=== PATIENT | female | born 1985 | race Caucasian/White ===

== ENCOUNTER 2022-01-01 08:22 | Day surgery (SDC) | payer BC ==
--- NOTE | 2022-01-01 08:17 | HP ---
DATE OF SURGERY: 01/01/2022 HISTORY OF PRESENT ILLNESS: The patient is a 36-year-old had a bad attack a few weeks, right upper quadrant pain radiating to chest, in between shoulder blades, ingestion, heartburn, nausea, had a sweaty sensation. She had a work up show cholelithiasis. It was felt the patient had acute exacerbation of chronic cholecystitis, symptomatic cholelithiasis. It was felt she needed cholecystectomy. PAST MEDICAL HISTORY: She denies any chronic illnesses. PAST SURGICAL HISTORY: section x2. She had surgery on a vessel in her left arm. MEDICATIONS: Junel control pills, Prilosec. ALLERGIES: NKDA. FAMILY HISTORY: Cancer, hypertension, heart disease, depression. SOCIAL HISTORY: Denies smoking, occasional alcohol use. REVIEW OF SYSTEMS: Fourteen systems reviewed. No chest pain or palpitations. Other systems negative or noncontributory as above and per preadmission questionnaire. PHYSICAL EXAMINATION: GENERAL: No acute distress. HEENT: Sclerae nonicteric. NECK: No JVD. CHEST: Equal excursion, nonlabored breathing. CVS: Regular rate and rhythm. ABDOMEN: Soft. No peritoneal signs. EXTREMITIES: No significant edema. NEURO: Alert, oriented, moving extremities symmetrically. PSYCH: Appropriate mood and affect. IMPRESSION: Acute exacerbation of chronic cholecystitis, symptomatic cholelithiasis. I feel the patient will benefit from cholecystectomy. Risks and benefits explained in detail including but not limited to bleeding or infection, risk of trocar injury or hernia, risk of bowel, bladder or blood vessel injury, risk of bile leak, bile duct injury, retained stone or sludge possibly requiring further procedure either open or ERCP, general risk of anesthesia, deep venous thrombosis, pulmonary embolism, pneumonia, perioperative risk of aches, pains, bloating, constipation and/or loose stools possibly even chronic in nature. She understands and agrees to the planned procedure, will proceed with outpatient laparoscopic cholecystectomy possible open.
[~2022-01-01 08:22] MED LIST: Lactated Ringers 1,000 ML IV ONE; Sensorcaine 0.25% 10 ML ONE
[2022-01-01] MEDS ORDERED: Lactated Ringers 1,000 ML IV ONE (09:18)
[2022-01-01] MEDS ORDERED: MEFOXIN 2 GM PREMIX** 2 GM/50 ML ML IV ONE (09:18)
[2022-01-01] MEDS ORDERED: Lactated Ringers 1,000 ML IV SCH (09:30)
[2022-01-01] MEDS ORDERED: MEFOXIN 2 GM PREMIX** 2 GM/50 ML ML IV SCH (10:00)
[2022-01-01] MEDS ORDERED: Transderm Scop 1.5MG Patch TOP PRN (10:02)
[2022-01-01] MEDS ORDERED: Pepcid 20 MG VIAL IV ONE (10:02)
[2022-01-01] MEDS ORDERED: Reglan 10 MG/2 ML IV ONE (10:02)
[2022-01-01] MEDS ORDERED: BRIDION 200MG/2ML IV ONE (10:24)
[2022-01-01] MEDS ORDERED: Decadron 4 MG INJ ONE (10:24)
[2022-01-01] MEDS ORDERED: DIPRIVAN 200 MG/20 ML IV ONE (10:24)
[2022-01-01] MEDS ORDERED: Zemuron 100 MG/10 ML ONE (10:24)
[2022-01-01] MEDS ORDERED: Zofran 4 MG/2 ML VIAL ONE (10:24)
[2022-01-01] MEDS ORDERED: Xylocaine-Mpf 2% 5 Ml Vial ONE (10:24)
[2022-01-01] MEDS ORDERED: TORAdol 30 mg Injection ONE (10:24)
[2022-01-01] MEDS ORDERED: SUBLIMAZE 100 MCG/2 ML ONE (10:25)
[2022-01-01] MEDS ORDERED: NORCO 5/325 MG PO PRN (12:20)
[2022-01-01 12:45] VITALS: O2SAT 99
[2022-01-01 13:41] VITALS: BP 138/78; PULSE 65
--- NOTE | 2022-01-01 15:36 | OP ---
SURGERY DATE/TIME: 01/01/2022 1035 PREOPERATIVE DIAGNOSIS: Acute exacerbation of chronic cholecystitis, symptomatic cholelithiasis. POSTOPERATIVE DIAGNOSIS: Acute exacerbation of chronic cholecystitis, symptomatic cholelithiasis. PROCEDURE: Laparoscopic cholecystectomy. SURGEON: Dr. Baldo Joy. ANESTHESIA: General. ESTIMATED BLOOD LOSS: Minimal. INDICATIONS: As noted above. Risks and benefits explained in detail but not limited to and consent obtained. DESCRIPTION OF PROCEDURE AND FINDINGS: The patient was taken to the operating room. General anesthesia induced. Abdomen prepped and draped in usual sterile fashion. After official time out and no disagreement with planned procedure, a transverse incision supraumbilical area. Fascia grasped and pulled upward. Veress needle inserted and tested with saline. Pneumoperitoneum accomplished insufflating opening pressure of 0-15. An 11 mm bladeless port and camera inserted without difficulty followed by two - 5 mm right upper quadrant ports and 5 mm epigastric port. There was no evidence of any intra-abdominal injury secondary to trocar or Veress needle placement. The gallbladder is grasped retracted over the edge of the liver dissecting posterior, lateral to anterior fashion. It is quite a vascular gallbladder. Once the cystic duct and infundibular junction well skeletonized until critical view obtained anteriorly and posteriorly. Once this is accomplished cystic duct clipped x3 and divided in the usual fashion. Gallbladder slowly and carefully dissected free from its dense attachment to liver bed. It is quite vascular requiring carefully isolating the main cystic artery. Additional oozing, bleeding side branch off the cystic artery/cystic vein directly on the gallbladder wall this took some time given quite vascularity of the gallbladder but it is slowly and carefully accomplished staying directly on the gallbladder wall. Just prior to releasing from final attachments to the anterior edge of the liver, small oozing vein anterior edge of the liver this to was clipped. Just prior releasing from final attachments, liver bed re-inspected. Clips noted in place in cystic duct and cystic artery stumps. No signs of any active bleeding or bile leakage. It was felt there is no benefit from drain placement. One of the graspers tore a small, little pinhole in the gallbladder. There was a small amount of bile stain on the gallbladder wall itself. Otherwise there was no evidence of any significant bile spillage from the gallbladder itself. Gallbladder is placed in the provided sac, pulled up and out the supraumbilical 10/11 port site where it was opened outside the skin. It remained in the bag. Multiple small to medium sized stones carefully removed and sludge removed with aid of the [place] with the gallbladder and bag finally being removed and passed off. The fascial defect closed with puncture closure device with #1 Vicryl. Port is replaced. Copious amount of irrigation accomplished lateral to the liver and subhepatic space until clear. Liver bed re-inspected. Clips noted in place in cystic duct and cystic artery stumps. No signs of any active bleeding or bile leakage. It was felt there was no need for drain placement. Pneumoperitoneum decompressed. The wound irrigated out. Skin incision closed with 4-0 Vicryl. Steri-Strips and sterile dressing applied. 0.25% Marcaine local injected along the skin incision fascial defect. The patient tolerated the procedure well. There were no immediate complications. It was just a very vascular gallbladder requiring clipping additional oozing side branches off the cystic artery/cystic vein directly on the gallbladder wall as necessary. Findings discussed with the family out in the waiting area. She was transferred to the recovery area in stable condition.
== END 2022-01-01 13:35 | disposition home or self-care (01) ==
LOC: SDC 08:22
PROVIDERS: ATTEND Surgery
DX: K81.2 Acute cholecystitis with chronic cholecystitis (principal)
CPT/HCPCS: 84703; J0694; J1100; J1885; J2405; J2704; J3010; A9270-GY